=== PATIENT | male | born 1960 | race Caucasian/White ===

== ENCOUNTER 2017-12-27 13:24 | Day surgery (SDC) | payer MEDICARE, BC, SELFPAY ==
[2017-12-24 14:50] VITALS: BMI 40.1
[2017-12-27 13:44] VITALS: BP 126/76; PULSE 86; RESP 18; TEMP 36.4; O2SAT 96
[2017-12-27 14:49] VITALS: O2SAT 99
--- NOTE | 2017-12-27 15:05 | P.PCN_ITS ---
[facility] Procedure Note Procedure Note:: Upper Endoscopy Procedure Report: Esophagogastroduodenoscopy with cold biopsies Endoscopost: Nicholas Hester II, MD Referring Physician: Angela Aguero PA-C Date of Procedure: December 27, 2017 Equipment: Olympus GIF 180 standard upper endoscope Sedation: MAC sedation Indications: Mr. Sanz is a 57-year-old gentleman with long-standing reflux. He has been on omeprazole. He does report some burping and bloating. He reports no nausea, dysphagia or indigestion. He has no abdominal pain or weight loss. He reports no melanotic stools. Procedure: Prior to the procedure, a history and physical exam was performed, and patient' s medications and allergies were reviewed. The risks, benefits and alternatives of the sedation and procedure were discussed with the patient. All questions were answered and informed consent was obtained. The patient was brought to the procedure room. Patient identification and proposed procedure were verified by the physician and the nurse. The patient was placed in a left lateral decubitus position and the scope was passed under direct vision. Throughout the procedure, the patient's blood pressure, pulse, and oxygen saturations were monitored continuously. The upper GI endoscopy was accomplished without difficulty. The patient tolerated the procedure well. Findings: The scope was passed directly into the upper esophagus and advanced to the third portion of the duodenum. The post bulbar duodenum and duodenal bulb were normal with normal mucosa and conniventes. The scope was withdrawn through a normal duodenal bulb and pylorus into the stomach. There was some mild linear erythema of the antrum with bile reflux and a antral polyp that was removed via cold biopsy. The remainder of the antrum, body and fundus of the stomach were grossly normal. Upon retroflexion there was a small 2 cm hiatal hernia. The scope was then withdrawn into the esophagus. There was at least one tongue of salmon colored mucosa that was biopsied to rule out intestinal metaplasia/short segment Mortensen's esophagus. There was no evidence of reflux esophagitis or Schatzki's ring. The remainder of the esophageal mucosa was normal. Impression: 1. Possible short segment Mortensen's esophagus with nonerosive GERD and small 2 cm hiatal hernia 2. Gastric antral polyp 3. Bile reflux with mild linear reactive antritis/gastritis Plan: I would continue omeprazole as maintenance therapy. I will follow up the biopsies and proceed with screening colonoscopy.
--- NOTE | 2017-12-27 15:21 | HMH.PROC ---
[facility] Procedure Note Procedure Note:: Colonoscopy Procedure Report: Colonoscopy with cold snare polypectomy Endoscopist: Nicholas Hester II, MD Referring physician: Angela HIGUERA Date of Procedure: December 27, 2017 Equipment: Olympus 180 variable stiffness pediatric colonoscope Sedation: MAC sedation Indication: Mr. Sanz is a 57-year-old gentleman who is here for follow-up screening colonoscopy. His last colonoscopy was more than 5 years ago and he does have a history of colon polyps. He does report some intermittent diarrhea/functional diarrhea. He also has occasional bright red blood per rectum. He reports no abdominal pain, weight loss or family history of colon cancer. Procedure: Prior to the procedure, a history and physical exam was performed, and patient's medications and allergies were reviewed. The risks, benefits and alternatives of the sedation and procedure were discussed with the patient. All questions were answered and informed consent was obtained. The patient was brought to the procedure room. Patient identification and proposed procedure were verified by the physician and the nurse. The patient was placed in a left lateral decubitus position and the scope was passed under direct vision. Throughout the procedure, the patient's blood pressure, pulse, and oxygen saturations were monitored continuously. The colonoscopy was accomplished without difficulty. The patient tolerated the procedure well. Findings: On digital rectal examination there was normal rectal tone. There were no external hemorrhoids. The prostate was 2+, smooth, soft, symmetric without nodules. The colonoscope was introduced through the anal canal to the rectum and advanced to the cecum. The ileocecal valve and appendiceal orifice were identified. The scope was advanced a short distance into the ileum which appeared grossly normal. The scope was then withdrawn into the colon. There were 4 colon polyps identified in the descending ?1 and sigmoid ?3. These ranged in size from 4-11 mm and were all removed via cold snare polypectomy. There were mildly scattered diverticuli throughout the descending and sigmoid colon (LEFT colon). The rectum itself was normal. Upon retroflexion within the rectum there were grade 1 internal hemorrhoids. Impression: 1. Colonic polyps ?4 2. Mild left-sided diverticulosis 3. Grade 1 internal hemorrhoids Plan: I will follow up the polyp pathology and recommend repeat colonoscopy again in 5 years based upon the polyp histology. I would encourage fiber bulk supplementation on a long-term daily maintenance basis.
[2017-12-27 15:25] VITALS: BP 102/61; PULSE 92; RESP 18; TEMP 36.4; O2SAT 94
--- NOTE | 2017-12-27 15:25 | P.PCN_ITS ---
[facility] Procedure Note Procedure Note:: Colonoscopy Procedure Report: Colonoscopy with cold snare polypectomy Endoscopist: Nicholas Hester II, MD Referring physician: Angela HIGUEAR Date of Procedure: December 27, 2017 Equipment: Olympus 180 variable stiffness pediatric colonoscope Sedation: MAC sedation Indication: Mr. Sanz is a 57-year-old gentleman who is here for follow-up screening colonoscopy. His last colonoscopy was more than 5 years ago and he does have a history of colon polyps. He does report some intermittent diarrhea/ functional diarrhea. He also has occasional bright red blood per rectum. He reports no abdominal pain, weight loss or family history of colon cancer. Procedure: Prior to the procedure, a history and physical exam was performed, and patient' s medications and allergies were reviewed. The risks, benefits and alternatives of the sedation and procedure were discussed with the patient. All questions were answered and informed consent was obtained. The patient was brought to the procedure room. Patient identification and proposed procedure were verified by the physician and the nurse. The patient was placed in a left lateral decubitus position and the scope was passed under direct vision. Throughout the procedure, the patient's blood pressure, pulse, and oxygen saturations were monitored continuously. The colonoscopy was accomplished without difficulty. The patient tolerated the procedure well. Findings: On digital rectal examination there was normal rectal tone. There were no external hemorrhoids. The prostate was 2+, smooth, soft, symmetric without nodules. The colonoscope was introduced through the anal canal to the rectum and advanced to the cecum. The ileocecal valve and appendiceal orifice were identified. The scope was advanced a short distance into the ileum which appeared grossly normal. The scope was then withdrawn into the colon. There were 4 colon polyps identified in the descending ?1 and sigmoid ?3. These ranged in size from 4-11 mm and were all removed via cold snare polypectomy. There were mildly scattered diverticuli throughout the descending and sigmoid colon (LEFT colon). The rectum itself was normal. Upon retroflexion within the rectum there were grade 1 internal hemorrhoids. Impression: 1. Colonic polyps ?4 2. Mild left-sided diverticulosis 3. Grade 1 internal hemorrhoids Plan: I will follow up the polyp pathology and recommend repeat colonoscopy again in 5 years based upon the polyp histology. I would encourage fiber bulk supplementation on a long-term daily maintenance basis.
--- NOTE | 2017-12-27 15:32 | HMH.ANESCL ---
[facility] Anesthesia Checklist - Patient Identification Patient Identification: Arm Band - Structural Data Admitted From: Home Consent for Planned Operative Procedure(s) Verified: Yes Verified Documents: Surgical Consent, History and Physical - NPO Status Verified Time NPO: 00:00 - Additional verifications Anesthesia Reactions: No - Airway Assessment C-Spine Mobility Assessed: Yes TMJ Mobility Assessed: Yes Dentition: Edentulous - Neurological Assessment Level of Consciousness: Awake Hx Seizures: No Numbness or tingling in extremities: No - Anesthesia Plan Anesthesia Risk discussed: Yes Anesthesia Plan: Verified ASA Class: III Anesthesia Type: MAC [facility] Anesthesia HX I have reviewed the patient's past medical history: Yes Medical History: Reports:: Anxiety, Asthma, Chronic Obstructive Pulmonary Disease (COPD), Gastroesophageal Reflux Disease(GERD), Hyperlipidemia, Hypertension, Lung Disease (copd) Denies:: Diabetes Mellitus Type 1, Diabetes Mellitus Type 2, Internal Pacemaker, Seizures Comment: morbid obesity Laterality Cases: Left: Arthroscopy Shoulder, Other Other Surgeries: Yes: Hernia Repair, Sinus Surgery. No: Pacemaker Amputation: No Fractures: No *Family Hx:: Coronary Artery Disease, Heart Attack, Cancer
[2017-12-27 15:35] VITALS: BP 115/72; PULSE 80; RESP 18; O2SAT 99
[2017-12-27 15:45] VITALS: BP 122/82; PULSE 76; RESP 18; O2SAT 97
[2017-12-27 16:10] VITALS: BP 113/77; PULSE 80; RESP 18; TEMP 36.2; O2SAT 98
== END 2017-12-27 16:10 | disposition home or self-care (01) ==
LOC: OUTP 13:28
PROVIDERS: Family Provider Family Medicine; PCP Physician Assistant; Visit Provider Internal Medicine Gastroenterology
PROC: 0DJ08ZZ Inspection of Upper Intestinal Tract, Via Natural or Artificial Opening Endoscopic (ICD-10-PCS; CPT 43235; principal; 2017-12-27 14:30)
DX: Z12.11 Encounter for screening for malignant neoplasm of colon (principal); K63.5 Polyp of colon; K57.30 Diverticulosis of large intestine without perforation or abscess without bleeding; K64.0 First degree hemorrhoids; K21.9 Gastro-esophageal reflux disease without esophagitis; K44.9 Diaphragmatic hernia without obstruction or gangrene; K31.7 Polyp of stomach and duodenum; K29.60 Other gastritis without bleeding
CPT/HCPCS: 43239; 45385; 88305

== ENCOUNTER 2020-04-15 15:30 | Emergency (ER) | payer MEDICARE, BC, SELFPAY ==
--- NOTE | 2020-04-15 15:49 | XR_ITS ---
PROCEDURE: XR HAND RT MIN 3V CLINICAL INDICATION: INJURY Right hand swelling and pain after a fall on Wednesday. COMPARISON: No exams were available for comparison FINDINGS: There is a mildly displaced spiral fracture of the 4th metacarpal shaft. No lytic or blastic change. There is normal mineralization. The joint spaces are well-preserved. Very mild degenerative changes are seen of the DIP joints.. No erosive changes evident. Other findings:Soft tissue edema/swelling of the hand is seen more dorsally. IMPRESSION: 1. A mildly displaced spiral fracture of the 4th metacarpal. 2. Soft tissue edema/swelling of the right hand is seen more dorsally. Dictated by: Patricio Pagan 04/15/2020 16:26 Electronically signed by Patricio Pagan in [place] 04/15/2020 16:26
[2020-04-15 16:00] VITALS: BP 125/79; PULSE 73; RESP 20; TEMP 36.8; O2SAT 98; BMI 41.9
[2020-04-15 16:08] VITALS: BP 125/79; PULSE 73; RESP 20; TEMP 36.8; O2SAT 98
--- NOTE | 2020-04-15 16:11 | HMH.EDUTC ---
[facility] Disposition Clinical Impression: Fracture, metacarpal shaft Qualifiers: Encounter type: initial encounter Metacarpal bone: fourth Fracture type: closed Fracture alignment: displaced Laterality: right Qualified Code(s): S62.324A - Displaced fracture of shaft of fourth metacarpal bone, right hand, initial encounter for closed fracture Disposition: Home, Self-Care Condition on Discharge: Good Instructions: Hand Fracture Additional Instructions: elevated splint in place see ortho call office tomorrow if numbess or tingling remove splint and call or return to [facility] or [facility] for 20 mins remove then repeat every hour Referrals: Angela Aguero [Primary Care Provider] - Maria Del Carmen Mccray MD [Physician] - Time of Disposition: 16:39 Medical Decision Making - Dean Inquiry Pt receiving controlled substance: No Vital Signs: 04/15/20 16:00 04/15/20 16:08 Temperature 98.3 F 98.3 F Temperature Source Oral Oral Pulse Rate 73 Pulse Rate [Left] 73 Respiratory Rate 20 20 Blood Pressure 125/79 Blood Pressure [Right Arm] 125/79 Blood Pressure Mean [Right Arm] 94 Blood Pressure Source [Right Arm] Automatic Cuff Blood Pressure Position [Right Arm] Sitting 02 Sat by Pulse Oximetry 98 Oxygen Delivery Method Room Air Room Air Orders (Tests/Meds): ORDERS Category Date Time Status Hand XR right minimum 3 views [XR hand RT min 3V] Stat Exams 04/15/20 15:49 Taken [facility] HPI - General Chief complaint: Urgent Treatment Center Stated complaint: AO 0725@1400 fell injured R Hand Time Seen by Provider: 04/15/20 16:11 Mode of Arrival: Ambulatory Source of Information: Patient Limitations: No Limitations Description of Symptoms (Recalled from Triage Doc. by RN): Right hand pain- Pt fell out of a chair because it broke. HEENT Symptoms (Recalled from RN notes): No Resp Symptoms (Recalled from RN notes): No Skin Symptoms (Recalled from RN notes): No MS Symptoms (Recalled from RN notes): Yes (right hand pain) Functional Status (Recalled from RN notes): stable - History of Present Illness Provider Complaint: 60 yr old male presents for rt hand pain. pt states on sat the chair he was sitting in legs broke and he fell and caught with hand. Pt states swollen and tender to palpated - Related Data Home Medications Medication Instructions Recorded Confirmed aspirin 81 mg tablet,delayed 81 mg PO DAILY tab 12/16/17 12/24/17 release cholecalciferol (vitamin D3) 25 1,000 unit PO DAILY cap 12/16/17 12/24/17 mcg (1,000 unit) capsule furosemide 20 mg tablet 40 mg PO DAILY tab 12/16/17 12/24/17 omeprazole 40 mg capsule,delayed 40 mg PO DAILY cap 12/16/17 12/24/17 release tamsulosin 0.4 mg capsule 0.4 mg PO DAILY cap 12/16/17 12/24/17 venlafaxine 75 mg capsule,extended 75 mg PO TID cap 12/16/17 12/24/17 release 24 hr Losartan/Hydrochlorothiazide 1 each PO DAILY 12/20/17 12/24/17 [Losartan-Hctz 100-25 mg Tab] Pravastatin Sodium [Pravachol 40mg 40 mg PO DAILY 12/20/17 12/24/17 Tablet] Albuterol Sulfate [Proair Hfa 2 puffs IH Q4HP PRN 12/24/17 12/24/17 90mcg/puff Inh] Budesonide [Pulmicort 0.5mg/2mL 0.5 mg IH DAILY 12/24/17 12/24/17 neb] digestive enzymes (plant) 75 mg 75 mg PO DAILY cap 02/01/18 capsule lactobacillus combination no.8 3 3,000 mmu cells PO DAILY cap 02/01/18 billion cell capsule fluticasone fur. 100 mcg-umeclid 1 inh INHALATION DAILY 06/07/18 62.5 mcg-vilant 25 mcg inhalat.powder Previous Rx's Medication Instructions Recorded carvedilol 25 mg tablet 50 mg PO BID #240 tab 04/11/19 Allergies Allergy/AdvReac Type Severity Reaction Status Date / Time No Known Allergies Allergy Verified 08/02/18 11:21 - Worker's Comp Is this a Worker's Comp case?: No Is this an [facility] Worker's Comp?: No Is this a [facility] Worker's Comp?: No [facility] History - Hepatitis A Screen Drug use history?: No High risk sexual behaviors?: No History of sexually transm
== END 2020-04-15 17:12 | disposition home or self-care (01) ==
PROVIDERS: Emergency Provider Nurse Practitioner Family; PCP Physician Assistant
DX: S62.324A Displaced fracture of shaft of fourth metacarpal bone, right hand, initial encounter for closed fracture (principal); W07.XXXA Fall from chair, initial encounter; Y92.019 Unspecified place in single-family (private) house as the place of occurrence of the external cause; I10 Essential (primary) hypertension; K21.9 Gastro-esophageal reflux disease without esophagitis; F41.9 Anxiety disorder, unspecified; E78.5 Hyperlipidemia, unspecified; J44.9 Chronic obstructive pulmonary disease, unspecified; Z87.891 Personal history of nicotine dependence; Z79.899 Other long term (current) drug therapy
CPT/HCPCS: 29125; G0463; 73130; 99201; 99202

== ENCOUNTER → 2020-04-26 13:18 | Outpatient (CLI) | payer MEDICARE, BC, SELFPAY ==
--- NOTE | 2020-04-26 13:26 | XR_ITS ---
PROCEDURE: XR HAND RT MIN 3V CLINICAL INDICATION: RT 4th MC FX COMPARISON: No exams were available for comparison FINDINGS: The hand and wrist are in circled by a semiopaque cast. There is a spiral oblique fracture mid shaft 4th metacarpal in satisfactory alignment. There is no definite callus formation seen. The remaining metacarpals in all of phalanges appear intact. There is mild narrowing of the MP joints of all fingers. IMPRESSION: Satisfactory alignment and post casting of spiral oblique fracture 4[address] Manoj Stanford MD 04/26/2020 14:05 Dr. Manoj Fishman MD in [place] 04/26/2020 14:05
== END ==
PROVIDERS: PCP Physician Assistant; Visit Provider Orthopaedic Surgery
DX: S62.329A Displaced fracture of shaft of unspecified metacarpal bone, initial encounter for closed fracture (principal)
CPT/HCPCS: 73130

== ENCOUNTER → 2020-05-17 09:44 | Outpatient (CLI) | payer MEDICARE, BC, SELFPAY ==
--- NOTE | 2020-05-17 09:56 | XR_ITS ---
PROCEDURE: XR HAND RT MIN 3V CLINICAL INDICATION: 4th MC FX Follow-up 4th metacarpal fracture COMPARISON: CR XR HAND RT MIN 3V from 04/15/2020 CR XR HAND RT MIN 3V from 04/26/2020 FINDINGS: The cast has been removed. There is a healing oblique 4th metacarpal fracture which is nondisplaced with increasing callus formation. The joint spaces are well-preserved. No significant degenerative/arthritic changes. No erosive changes evident. Other findings:None. IMPRESSION: Healing nondisplaced left 4th metacarpal fracture Dictated by: Maximino Cruz MD 05/17/2020 11:23 Maximino Cruz MD in [place] 05/17/2020 11:23
== END ==
PROVIDERS: PCP Physician Assistant; Visit Provider Orthopaedic Surgery
DX: S62.329A Displaced fracture of shaft of unspecified metacarpal bone, initial encounter for closed fracture (principal)
CPT/HCPCS: 73130

== ENCOUNTER 2020-05-17 11:54 | Outpatient (RCR) | payer MEDICARE, BC, SELFPAY | END 2020-05-17 12:30 | disposition home or self-care (01) | LOC: OT 11:54 | PROVIDERS: Visit Provider Orthopaedic Surgery | DX: S62.324A Displaced fracture of shaft of fourth metacarpal bone, right hand, initial encounter for closed fracture (principal) | CPT/HCPCS: 97763 ==

== ENCOUNTER → 2020-07-01 10:46 | Outpatient (CLI) | payer MEDICARE, BC, SELFPAY ==
--- NOTE | 2020-07-01 10:55 | XR_ITS ---
PROCEDURE: XR HAND RT MIN 3V CLINICAL INDICATION: rt hand FX FU COMPARISON: CR XR HAND RT MIN 3V from 04/15/2020 CR XR HAND RT MIN 3V from 04/26/2020 CR XR HAND RT MIN 3V from 05/17/2020 FINDINGS: There is a healing fracture involving the shaft of the 4th metacarpal mid aspect with good alignment. Mild osteoarthritic changes are present at the 1st and 2nd metacarpophalangeal joint Other findings:None. IMPRESSION: Healing 4th metacarpal fracture Dictated by: Maximino Cruz MD 07/01/2020 11:27 Maximino Cruz MD in [place] 07/01/2020 11:27
== END ==
PROVIDERS: PCP Physician Assistant; Visit Provider Orthopaedic Surgery
DX: S62.329A Displaced fracture of shaft of unspecified metacarpal bone, initial encounter for closed fracture (principal)
CPT/HCPCS: 73130

== ENCOUNTER → 2020-10-15 12:38 | Outpatient (CLI) | payer MEDICARE, BC, SELFPAY ==
[2020-10-15 13:05] LABS: Basophils # 0.1 K/mm3 (0-0.2); Basophils % 0.6 % (0.1-2.0); Eosinophils # 0.2 K/mm3 (0.0-0.4); Eosinophils % 3.2 % (0.1-12.0); Hemoglobin 14.4 g/dL (14.1-18.0); Lymphocytes # 1.1 K/mm3 (0.7-4.5); Lymphocytes % 14.7 % (10-50); Mean Corpuscular HGB Conc 33.5 g/dL (31.8-35.4); Mean Corpuscular Hemoglobin 29.7 pg (27.0-31.2); Mean Corpuscular Volume 88.8 fl (80-94); Mean Platelet Volume 8.4 fl (7.4-10.4); Monocytes # 0.3 K/mm3 (0.1-1.0); Monocytes % 4.6 % (1.7-9.3); Neutrophils # 5.6 K/mm3 (1.8-7.8); Neutrophils % 76.9 % (37.0-80.0); Platelet Count 200 K/mm3 (142-424); Red Blood Count 4.84 M/mm3 (4.60-6.20); Red Cell Distribution Width 13.5 % (11.5-17.5); White Blood Count 7.2 K/mm3 (4.8-10.8)
[2020-10-15 13:49] LABS: Chloride 94 mmol/L (98-107); Potassium 3.7 mmoL/L (3.5-5.1); Sodium 135 mmol/L (136-145)
[2020-10-15 13:51] LABS: Alanine Aminotransferase 29 U/L (12-78); Anion Gap 12.7 mEq/L (5-15); Aspartate Amino Transferase 40 U/L (17-59); Bilirubin,Unconjugated 0.1 mg/dL (0.0-1.1); Blood Urea Nitrogen 15 mg/dl (9-20); Carbon Dioxide 32 mmol/L (22.0-30.0); Estimated Glomerular Filt Rate 86 ml/min (>60); GFR (African American) 104 ML/MIN (>60)
[2020-10-15 13:52] LABS: Albumin Level 4.3 g/dl (3.5-5.0); Alkaline Phosphatase 87 U/L (38-126); Bilirubin,Direct 0.2 mg/dl (0.0-0.4); Bilirubin,Indirect 0.2 mg/dL (0.0-0.9); Bilirubin,Total 0.4 mg/dl (0.2-1.3); Calcium 9.5 mg/dl (8.4-10.2); Chol/HDL Ratio 2.6 (1-3.5); Cholesterol 207 mg/dl (140-200); Glucose 247 mg/dl (74-100); HDL Cholesterol 79 mg/dl (40-60); Magnesium 1.5 mg/dl (1.6-2.3); Total Protein,Serum 7.3 g/dl (6.3-8.2); Triglycerides 303 mg/dl (30-150); VLDL Cholesterol 61 mg/dL (0-40)
[2020-10-15 14:01] LABS: NT Pro Brain Natriuretic Pep. 110 pg/mL (0-125)
[2020-10-15 14:03] LABS: Direct LDL Cholesterol 97.06 mg/dL (100-129)
== END ==
PROVIDERS: Visit Provider Physician Assistant
DX: E78.5 Hyperlipidemia, unspecified (principal); I10 Essential (primary) hypertension; J44.9 Chronic obstructive pulmonary disease, unspecified; R06.00 Dyspnea, unspecified
CPT/HCPCS: 36415; 80048; 80061; 80076; 83735; 83880; 85025

== ENCOUNTER → 2021-03-17 07:49 | Outpatient (CLI) | payer MEDICARE, BC, SELFPAY ==
--- NOTE | 2021-03-17 07:53 | XR_ITS ---
PROCEDURE: XR FOOT WT BEARING RT 3V CLINICAL INDICATION: pain COMPARISON: No exams were available for comparison FINDINGS: There is a healing fracture involving the distal aspect of the 5th metatarsal. There is minimal medial angulation and 3 mm medial displacement of the distal fracture fragment. Callus formation is present. There is a small calcaneal spur and Achilles enthesophyte. Mild flexion deformity of the 2nd toe. Osteoarthritic change 1st MTP joint and 1st tarsal metatarsal junction. IMPRESSION: Healing 5th metatarsal fracture Osteoarthritic change Dictated by: Maximino Cruz MD 03/17/2021 09:13 Maximino Cruz MD in [place] 03/17/2021 09:13
--- NOTE | 2021-03-17 07:53 | XR_ITS ---
PROCEDURE: XR FOOT WT BEARING LT 3V CLINICAL INDICATION: foot pain COMPARISON: No exams were available for comparison FINDINGS: No fracture or dislocation. No lytic or blastic change. There is normal mineralization. The joint spaces are well-preserved. No significant degenerative/arthritic changes. No erosive changes evident. Other findings:A broken off screws noted within the distal tibia. There is a small calcaneal spur. Borderline pes planus. IMPRESSION: Borderline pes planus. Broken off screw within the distal tibia. Dictated by: Maximino Cruz MD 03/17/2021 09:14 Maximino Cruz MD in [place] 03/17/2021 09:14
== END ==
PROVIDERS: PCP Physician Assistant; Visit Provider Nurse Practitioner
DX: M79.672 Pain in left foot (principal); M79.671 Pain in right foot
CPT/HCPCS: 73630

== ENCOUNTER → 2022-07-24 13:57 | Outpatient (CLI) | payer MEDICARE, BC, SELFPAY | PROVIDERS: PCP Nurse Practitioner Family; Visit Provider Internal Medicine Pulmonary Disease | DX: R06.09 Other forms of dyspnea (principal) | CPT/HCPCS: 94060; 94618; 94726; 94729 ==

== ENCOUNTER → 2023-03-29 15:24 | Outpatient (CLI) | payer MEDICARE, BC, SELFPAY ==
--- NOTE | 2023-03-29 15:25 | CT_ITS ---
FINAL REPORT TECHNIQUE: Axial images were obtained from the lung apex to the mid abdomen by computed tomography. This study was performed with techniques to keep radiation doses as low as reasonably achievable (ALARA). Individualized dose reduction techniques using automated exposure control or adjustment of mA and/or kV according to the patient's size were employed. CLINICAL HISTORY: lung cancer screening - March 2022 previous smoker, quit 12 years ago, smoked 36 years and 3ppd when smoking COMPARISON: 03/27/2022 FINDINGS: CHEST CT LOW DOSE CTDI vol (mGy): 2.90 DLP (mGy-cm): 97.95 There is no axillary adenopathy. There is no hilar or mediastinal adenopathy. The heart is normal in size. There is no pericardial or pleural effusion. Several small pulmonary nodules are again identified. There is a 5 mm posterior right upper lobe nodule well seen on image 25. There are small nodules near the left major fissure which are stable, may represent intra fissural nodes. There is a lateral left upper lobe nodule measuring 4 mm well seen on image 103, stable. No new mass or nodule is identified. Limited images of the upper abdomen are unremarkable. IMPRESSION: Stable pulmonary nodules as above. Lung RADS category 2. Recommend 12 month follow-up low-dose chest CT. Reviewed, Interpreted and Dictated by Nick Young III, MD Transcribed by Brenda Grady Authenticated and [facility]
== END ==
PROVIDERS: PCP Nurse Practitioner Family; Visit Provider Internal Medicine Pulmonary Disease
DX: Z87.891 Personal history of nicotine dependence (principal); Z12.2 Encounter for screening for malignant neoplasm of respiratory organs
CPT/HCPCS: 71271

== ENCOUNTER 2025-05-16 08:00 | Outpatient (RCR) | payer MEDICARE, SELFPAY | END 2025-05-16 23:59 | disposition home or self-care (01) | LOC: PT.CARL 08:00 | PROVIDERS: Visit Provider Nurse Practitioner Family | DX: M54.42 Lumbago with sciatica, left side (principal) | CPT/HCPCS: 97032; 97110; 97112; 97140; 97162 ==

== ENCOUNTER 2025-05-23 10:31 | Day surgery (SDC) | payer MEDICARE, SELFPAY ==
--- NOTE | 2025-05-22 10:55 | EXP.HP ---
History of Present Illness *Reason for visit:: Personal history of adenomatous colon polyps *History of present illness: Mr. Sanz is a 65-year-old gentleman who is here for screening/surveillance colonoscopy secondary to a personal history of adenomatous colon polyps. The patient did have a colonoscopy and December 2017 and had 4 polyps (small tubular adenomas x 4) removed (ranging in size from 4 to 11 mm). He also had some mild left-sided diverticulosis. The examination is deemed medically necessary for screening/surveillance colonoscopy. The patient has been seen, interviewed and examined prior to the procedure by both myself and the anesthesia provider. [facility] Disclaimer: The information contained in this section may have been updated after the patient was seen, as this information can be updated by other users. Medical History Diabetes Hyperlipidemia Hypertension Screening for lung cancer Dyspnea on exertion Multiple pulmonary nodules Stopped smoking with greater than 30 pack year history Shortness of breath COPD (chronic obstructive pulmonary disease) Surgical History History of arthroscopy of shoulder Family History Other Cancer Coronary artery disease Heart attack Social History (Updated 05/23/25 @ 11:07 by Gisella Espino RN) Smoking Status: Former smoker tobacco type: cigarettes second hand exposure: No alcohol intake: former substance use type: denies use current occupational status: retired Travel in the last 8 weeks?: None household members: spouse housing: house current occupational exposures/hazards: No caffeine: Yes Have you lived/traveled outside [place] in past 30 days?: No Contact w/someone who lives/traveled outside [place] past 30 days?: No Exposure to someone with infectious disease in past 14 days?: No Do you have a fever (greater than 100.4 F or 38 C)?: No Have you tested positive for COVID-19?: No Exposed to someone with COVID-19 in past 14 days?: No Do you have a sore throat?: No Do you have a cough?: No Do you have any weakness?: No Are you experiencing any nausea/vomitting?: No Do you have any diarrhea?: No Are you experiencing any unusual bleeding?: No Do you have any muscle aches/pain?: No Do you have any abdominal pain?: No Are you experiencing loss of taste or smell?: No Other Medical History Have you received the Flu Vaccine for this season: No Have you received the Pneumonia Vaccine: Yes Review of Systems Review of Systems Review of systems (narrative): Negative *Cardiovascular Comments: Negative *Gastrointestinal Comments: Negative *Genitourinary Comments: Negative *Musculoskeletal Comments: Negative *Neurologic Comments: Negative Meds Home Medications and Allergies Home Medications ?Medication ?Instructions ?Recorded ?Confirmed ?Type cholecalciferol (vitamin D3) 25 1,000 unit PO DAILY Supplement 12/16/17 05/23/25 History mcg (1,000 unit) capsule furosemide 20 mg tablet (Lasix) 40 mg PO DAILY Heart failure 12/16/17 05/23/25 History omeprazole 40 mg capsule,delayed 40 mg PO DAILY GERD 12/16/17 05/23/25 History release tamsulosin 0.4 mg capsule (Flomax) 0.4 mg PO DAILY Supplement 12/16/17 05/23/25 History venlafaxine 75 mg capsule,extended 75 mg PO TID Supplement 12/16/17 05/23/25 History release 24 hr (Effexor XR) losartan 100 1 each PO DAILY High blood pressure 12/20/17 05/23/25 History mg-hydrochlorothiazide 25 mg tablet pravastatin 40 mg tablet 40 mg PO DAILY High cholesterol 12/20/17 05/23/25 History budesonide 0.5 mg/2 mL suspension 0.5 mg inhalation DAILY Breathing 12/24/17 05/23/25 History for nebulization problems lactobacillus combination no.8 3 3,000 mmu cells PO DAILY 02/01/18 05/23/25 History billion cell capsule (Adult Probiotic) buspirone 15 mg tablet 15 mg PO BID 10/15/20 05/23/25 History empagliflozin 10 mg tablet 10 mg PO DAILY 03/17/21 05/23/25 History (Jardiance) carvedilol 25 mg tablet See Rx Instructions .Route 04/21/22 05/23/25 Rx .COMPLEX #360 tabs apixaban 5 mg tablet (Eliquis) 5 mg PO BID 04/22/22 05/23/25 History diltiazem HCl 240 mg capsule,24 240 mg PO DAILY 04/22/22 05/23/25 History hr,extended release gabapentin 100 mg capsule 100 mg PO DAILY 04/22/22 05/23/25 History metformin 500 mg tablet,extended 500 mg PO BID 04/22/22 05/23/25 History release 24 hr albuterol sulfate 90 mcg/actuation 2 inh inhalation QID PRN shortness 04/20/23 05/23/25 Rx aerosol inhaler of breath or wheezing 90 days #8.5 grams fluticasone fur. 200 mcg-umeclid 1 inh inhalation DAILY 90 days #90 04/20/23 05/23/25 Rx 62.5 mcg-vilant 25 mcg ea inhalat.powder (Trelegy Ellipta) ipratropium 0.5 mg-albuterol 3 mg 3 ml inhalation QID PRN shortness 04/20/23 05/23/25 Rx (2.5 mg base)/3 mL nebulization of breath or wheezing 90 days #270 soln mL montelukast 10 mg tablet 10 mg PO DAILY #90 tabs 04/20/23 05/23/25 Rx (Singulair) sodium,potassium,mag sulfates 17.5 See Rx Instructions PO .COMPLEX 05/10/25 05/23/25 Rx gram-3.13 gram-1.6 gram oral soln #354 mL (Suprep Bowel Prep Kit) New Prescriptions to Start Prescriptions: Allergies Allergy/AdvReac Type Severity Reaction Status Date / Time No Known Allergies Allergy Verified 05/23/25 10:57 Exam *Routine HEENT Exam Head: Present normocephalic Eye: Present EOMI and PERRL ENT: Present mucous membranes moist *Routine Neck Exam Neck: Present supple *Routine Respiratory Exam Respiratory: Present CTA bilaterally *Routine Cardiovascular Exam Cardiovascular: Present RRR *Routine Abdominal Exam Abdominal: Present soft and normoactive bowel sounds; Absent tenderness *Routine Rectal Exam Rectal:: deferred *Routine Genitalia Exam Genitalia:: deferred *Routine Extremities Exam Extremities: Absent cyanosis, clubbing or edema *Routine Skin Exam Skin: Present warm; Absent rash *Routine Neurological Exam Neurological: Present alert and oriented X3 Assessment and Plan *Assessment and plan (1) Personal history of adenomatous and serrated colon polyps: Status: Acute Category: Medical Code(s): Z86.0101 - Personal history of adenomatous and serrated colon polyps (2) Screening for colon cancer: Status: Acute Category: Medical Code(s): Z12.11 - Encounter for screening for malignant neoplasm of colon Plan A/P: 1. Personal history of adenomatous colon polyps is the preprocedural diagnosis. The patient will be anesthetized/sedated using MAC sedation. The patient has been seen and examined. Cardiac and lung assessment prior to the examination is stable. Proceed with planned screening/surveillance colonoscopy..
[2025-05-22 12:44] VITALS: BMI 34.0
[2025-05-23 10:58] VITALS: BP 143/70; PULSE 63; RESP 18; TEMP 36.1; O2SAT 96
[2025-05-23] MEDS: LACTATED RINGERS 1000ML 1,000 ML 50 ML IV (11:14)
--- NOTE | 2025-05-23 11:19 | EXP.ANES.CKL ---
[facility] Disclaimer: The information contained in this section may have been updated after the patient was seen, as this information can be updated by other users. Medical History Diabetes Hyperlipidemia Hypertension Screening for lung cancer Dyspnea on exertion Multiple pulmonary nodules Stopped smoking with greater than 30 pack year history Shortness of breath COPD (chronic obstructive pulmonary disease) Surgical History History of arthroscopy of shoulder Family History Other Cancer Coronary artery disease Heart attack Social History (Updated 05/23/25 @ 11:07 by Gisella Espino RN) Smoking Status: Former smoker tobacco type: cigarettes second hand exposure: No alcohol intake: former substance use type: denies use current occupational status: retired Travel in the last 8 weeks?: None household members: spouse housing: house current occupational exposures/hazards: No caffeine: Yes Have you lived/traveled outside [place] in past 30 days?: No Contact w/someone who lives/traveled outside [place] past 30 days?: No Exposure to someone with infectious disease in past 14 days?: No Do you have a fever (greater than 100.4 F or 38 C)?: No Have you tested positive for COVID-19?: No Exposed to someone with COVID-19 in past 14 days?: No Do you have a sore throat?: No Do you have a cough?: No Do you have any weakness?: No Are you experiencing any nausea/vomitting?: No Do you have any diarrhea?: No Are you experiencing any unusual bleeding?: No Do you have any muscle aches/pain?: No Do you have any abdominal pain?: No Are you experiencing loss of taste or smell?: No [facility] Anesthesia Checklist Patient Identification Patient Identification: Arm Band Structural Data Admitted From: Home Planned Operative Procedure/s: Colonoscopy Consent for Planned Operative Procedure(s) Verified: Yes Verified Documents: Surgical Consent and History and Physical NPO Status Verified Time NPO: 08:30 (finished prep) Additional verifications Anesthesia Reactions: No Airway Assessment Mallampati Score:: Class II C-Spine Mobility Assessed: Yes TMJ Mobility Assessed: Yes Dentition: Good Dentition Neurological Assessment Level of Consciousness: Awake, Alert and Appropriate Anesthesia Plan Anesthesia Risk discussed: Yes Anesthesia Plan: Verified ASA Class: III Anesthesia Type: MAC
--- NOTE | 2025-05-23 11:41 | HMH.PROCNOTE ---
[facility] Procedure Note Date: 05/23/25 Time: 12:11 Procedure Note:: Colonoscopy Procedure Report: Colonoscopy with cold snare polypectomy and snare cautery Endoscopist: Nicholas Hester II, MD Referring physician: LORIN Michel Date of Procedure: May 23, 2025 Equipment: Olympus [id number] adult colonoscope Sedation: MAC sedation Indication: Mr. Sanz is a 65-year-old gentleman who is here for screening/surveillance colonoscopy secondary to a personal history of adenomatous colon polyps. The patient did have a colonoscopy in December 2017 and had 4 polyps (small tubular adenomas x 4) removed (ranging in size from 4 to 11 mm). He also had some mild left-sided diverticulosis. He has not had any surveillance colonoscopies since that time. The patient reports no abdominal pain, weight loss, change in his bowel habits or rectal bleeding. He reports no family history of colon cancer. Procedure: Prior to the procedure, a history and physical exam was performed, and patient's medications and allergies were reviewed. The risks, benefits and alternatives of the sedation and procedure were discussed with the patient. All questions were answered and informed consent was obtained. The patient was brought to the procedure room. Patient identification and proposed procedure were verified by the physician and the nurse. The patient was placed in a left lateral decubitus position and the scope was passed under direct vision. Throughout the procedure, the patient's blood pressure, pulse, and oxygen saturations were monitored continuously. The colonoscopy was accomplished without difficulty. The patient tolerated the procedure well. Findings: On digital rectal examination there was normal rectal tone. There were no external hemorrhoids. The prostate was 2-3+ with some focal firmness/nodularity in the right upper margin. The colonoscope was introduced through the anal canal to the rectum and advanced to the cecum. The ileocecal valve and appendiceal orifice were identified. The scope was advanced a short distance into the ileum which appeared grossly normal. The scope was then withdrawn into the colon. There were 16 colon polyps (cecal x 4 (3, 4, 4 and 4 mm), ascending x 3 (3, 5 and 6 mm), transverse x 6 (3, 3, 3, 4, 6 and 7 mm) and sigmoid x 3 (4, 5 and 12 mm)). All of these were removed via cold snare polypectomy. The larger 12 mm polyp was removed via snare cautery. There were scattered diverticuli throughout the colon but more predominantly in the descending and sigmoid colon (LEFT colon). The rectum itself was normal. Upon retroflexion within the rectum there were grade 2 internal hemorrhoids. The preparation was excellent throughout with [place] Preparation Score of 9. The cecal time was 18 minutes. Impression: 1. Colonic polyps x 16 2. Pandiverticulosis 3. Grade 2 internal hemorrhoids 4. Nodular prostate Plan: I will follow-up the polyp histology and recommend repeat screening/surveillance colonoscopy again in 3 years. I would encourage psyllium bulking fiber supplementation on a maintenance basis. I will obtain PSA level if it has not been done in the last year.
[2025-05-23 12:16] VITALS: BP 136/73; PULSE 74; RESP 16; TEMP 36.1; O2SAT 96
[2025-05-23 12:26] VITALS: BP 120/76; PULSE 83; RESP 18; TEMP 36.1; O2SAT 95
[2025-05-23 12:36] VITALS: BP 138/74; PULSE 76; RESP 18; TEMP 36.1; O2SAT 95
[2025-05-23 12:46] VITALS: BP 150/72; PULSE 80; RESP 18; TEMP 36.1; O2SAT 96
[2025-05-23 14:21] LABS: Prostate Specific Ag, Diagnost 0.691 ng/ml (0.0-4.0)
[2025-05-27 09:10] LABS: POC Glucose,Bedside 96 gm/dL (70-110)
== END 2025-05-23 12:46 | disposition home or self-care (01) ==
PROVIDERS: PCP Nurse Practitioner Family; Visit Provider Internal Medicine Gastroenterology
PROC: 0DJD8ZZ Inspection of Lower Intestinal Tract, Via Natural or Artificial Opening Endoscopic (ICD-10-PCS; CPT 45378; principal; 2025-05-23 12:30)
DX: Z12.11 Encounter for screening for malignant neoplasm of colon (principal); D12.2 Benign neoplasm of ascending colon; D12.0 Benign neoplasm of cecum; D12.5 Benign neoplasm of sigmoid colon; D12.3 Benign neoplasm of transverse colon; K57.30 Diverticulosis of large intestine without perforation or abscess without bleeding; K64.1 Second degree hemorrhoids; N40.2 Nodular prostate without lower urinary tract symptoms; Z86.0101 Personal history of adenomatous and serrated colon polyps; E11.9 Type 2 diabetes mellitus without complications; E78.5 Hyperlipidemia, unspecified; I10 Essential (primary) hypertension; J44.9 Chronic obstructive pulmonary disease, unspecified; Z87.891 Personal history of nicotine dependence; Z79.899 Other long term (current) drug therapy; Z79.01 Long term (current) use of anticoagulants; Z79.84 Long term (current) use of oral hypoglycemic drugs; Z79.51 Long term (current) use of inhaled steroids
CPT/HCPCS: 45385; 36415; 82962; 84153; J2003; J2704; J7120

== ENCOUNTER 2025-06-04 08:00 | Outpatient (RCR) | payer MEDICARE, SELFPAY | END 2025-06-04 23:59 | disposition home or self-care (01) | LOC: PT.CARL 08:00 | PROVIDERS: Visit Provider Nurse Practitioner Family | DX: M54.42 Lumbago with sciatica, left side (principal) | CPT/HCPCS: 97014; 97032; 97110; 97112; G0283 ==

== ENCOUNTER 2025-06-12 08:56 | Outpatient (CLI) | payer MEDICARE, SELFPAY ==
--- NOTE | 2025-06-12 08:59 | US_ITS ---
FINAL REPORT TECHNIQUE: Ultrasound images of the abdominal aorta were obtained. CLINICAL HISTORY: SCREENING FINDINGS: ULTRASOUND OF THE ABDOMINAL AORTA The aorta is within normal limits without evidence of aneurysm. The bifurcation is normal. IMPRESSION: No evidence of abdominal aortic aneurysm. Reviewed, Interpreted and Dictated by Nissa Harvey MD Transcribed by Jazmyn Billingsley Authenticated and [facility]
--- OUTSIDE RECORDS SUMMARY | 2025-06-12 09:13 | XMS_ITS | Clinical Summary ---
Author Organization [facility] Address [address] [place] [address] Care Team Providers Care Pearl Cutter Name Role Phone Lexi Brooks APRN Primary Care Provider [phone] Allergies No known active allergies Medications albuterol sulfate HFA 108 (90 Base) MCG/ACT inhaler Inhale 1 puff 4 (Four) Times a Day As Needed. Active Fluticasone-Ume clidin-Vilant (TRELEGY) 200-62.5-25 MCG/INH inhaler Inhale 1 puff Daily. Active esomeprazole (nexIUM) 40 MG capsule Take 1 capsule by mouth Every Morning Before Breakfast. Active Saccharomyces boulardii (Probiotic) 250 MG capsule Take 250 mg by mouth Daily. Active triamcinolone (KENALOG) 0.1 % cream 10/21/2022 Active ipratropium-alb uterol (DUO-NEB) 0.5-2.5 mg/3 ml nebulizer 04/20/2023 Active metFORMIN ER (GLUCOPHAGE-XR) 500 MG 24 hr tablet 1 tablet Daily With Breakfast. 05/21/2023 Active ALPRAZolam (XANAX) 0.5 MG tablet Take 0.5 tablets by mouth As Needed. Active carvedilol (COREG) 3.125 MG tablet Take 1 tablet by mouth Daily. Active losartan-hydroc hlorothiazide (HYZAAR) 100-25 MG per tablet Take 1 tablet by mouth Daily. Active pantoprazole (PROTONIX) 40 MG EC tablet Take 1 tablet by mouth Daily. Active rOPINIRole (REQUIP) 0.25 MG tablet TAKE 4 TABLETS BY MOUTH 1-3 HOURS BEFORE BEDTIME FOR RESTLESS LEGS. Active topiramate (TOPAMAX) 50 MG tablet Take 1 tablet by mouth Every Night. Active apixaban (Eliquis) 5 MG tablet tablet Take 1 tablet by mouth Every 12 (Twelve) Hours. Active bumetanide (BUMEX) 1 MG tablet Take 2 tablets by mouth Daily. Active busPIRone (BUSPAR) 15 MG tablet Take 1 tablet by mouth 2 (Two) Times a Day. Active empagliflozin (Jardiance) 10 MG tablet tablet Take 1 tablet by mouth Daily. Active gabapentin (NEURONTIN) 600 MG tablet Take 0.5 tablets by mouth 2 (Two) Times a Day. 02/05/2024 Active hydrOXYzine (ATARAX) 10 MG tablet Take 1 tablet by mouth 2 (Two) Times a Day As Needed. Active montelukast (SINGULAIR) 10 MG tablet Take 1 tablet by mouth Daily. Active sotalol (BETAPACE) 120 MG tablet Take 1 tablet by mouth Every 12 (Twelve) Hours. Active vitamin B-12 (CYANOCOBALAMIN ) 1000 MCG tablet 07/28/2024 Active Vascepa 1 g capsule capsule Take 2 g by mouth 2 (Two) Times a Day. Active ARIPiprazole (ABILIFY) 10 MG tablet Take 1 tablet by mouth Daily. Active pravastatin (PRAVACHOL) 40 MG tablet Take 1 tablet by mouth every night at bedtime. Active tamsulosin (FLOMAX) 0.4 MG capsule 24 hr capsule Take 1 capsule by mouth Daily. Active venlafaxine XR (EFFEXOR-XR) 75 MG 24 hr capsule Take 2 capsules by mouth Daily. Active Active Problems Problem Noted Date Diagnosed Date Obstructive sleep apnea 03/27/2024 Assessment & Plan (10/04/2024 10:34 AM EST): Sending supply order refills. Orders: PAP Therapy Palpitations 04/20/2023 Assessment & Plan (04/20/2023 10:35 PM EDT): History of atrial fibrillation status post ablation. We will check Holter monitor to assess for possible episodes of A-fib. Dizziness 04/20/2023 Assessment & Plan (04/20/2023 10:41 PM EDT): Patient has been experiencing frequent episodes of palpitations, dizziness and fatigue that resolves after 15-30 minutes. Carotid duplex from 2020 with 16-49% carotid stenosis bilaterally. -14-day Holter monitor for further evaluation. -May need to update echo if unable to find a recent report in old charting system. Type 2 diabetes mellitus 07/03/2022 Essential hypertension 07/02/2022 Assessment & Plan (10/04/2024 10:34 AM EST): Well-controlled. Continue current medications. Assessment & Plan (11/09/2022 1:41 PM EST): At goal continue to stay off of losartan/HCTZ Alcohol abuse 10/05/2019 Assessment & Plan (11/09/2022 1:39 PM EST): Patient and report patient stopped drinking beer in August 2022. DANI treated with BiPAP 10/05/2019 Assessment & Plan (04/20/2023 10:33 PM EDT): Patient has received his replacement BiPAP machine and doing well with that. He did not bring device chip in today for download review. He uses his BIPAP consistently and denies excessive daytime sleepiness or fatigue. He is benefiting from PAP therapy and we plan to continue at current settings. Assessment & Plan (11/09/2022 1:39 PM EST): Patient reports he uses his DANI machine faithfully. He is benefiting from BiPAP therapy. We will plan to continue. He plans to take his machine to [facility] to get it mapped to his name as he has his new machine from the recall. Lumbar stenosis with neurogenic claudication Physical deconditioning 10/05/2019 Assessment & Plan (11/09/2022 1:39 PM EST): Will order physical therapy at [facility] in [place] Anxiety and depression 10/02/2019 Morbid obesity 10/02/2019 Assessment & Plan (04/20/2023 10:33 PM EDT): Patient's (Body mass index is 37.93 kg/m .) indicates that they are morbidly/severely obese (BMI > 40 or > 35 with obesity - related health condition) with health conditions that include obstructive sleep apnea and hypertension . Weight is improving with lifestyle modifications. BMI is above average; BMI management plan is completed. We discussed increasing exercise. Assessment & Plan (11/09/2022 1:38 PM EST): Has lost 20 pounds since he stopped drinking beer. Will refer back to PCP for management. Degeneration of lumbar or lumbosacral interverte bral disc 10/02/2019 Spondylosis of lumbar region without myelopathy or radiculopathy 10/02/2019 COPD (chronic obstructive pulmonary disease) Abnormal stress test Overview (07/03/2022): [facility], 05/26/2019: Luminal irregularities in LAD otherwise angiographically normal coronary arteries, EF 60% Mixed hyperlipidemia GERD (gastroesophageal reflux disease) Resolved Problems Problem Noted Date Diagnosed Date Resolved Date Atrial fibrillation with RVR 07/02/2022 10/04/2024 Overview (07/03/2022): 1. Atrial fibrillation diagnosis January 16, 2022 RADHA guided cardioversion [address] Garnica 2. Echo (while the patient was in A. fib) January 06, 2022 revealing EF 45 to 50% mild LVH left atrium moderately dilated mild MR. LA 4.7 cm 3. MCOT 01-06-22 AF HR 60-159 4. ECV to SR 10-1022 Assessment & Plan (11/09/2022 1:41 PM EST): Diagnosed January 16, 2022 RADHA guided cardioversion with Dr[address] Bates. Echo while the patient was in atrial fibrillation January 06, 2022 revealing EF 45 to 50% mild LVH left atrium moderately dilated mild MR. LA 4.7 cm. M cot 01/06/2022 AF heart rate 60-1 59 ECV to SR 06/1022. Patient is on Eliquis. Recent cardiac ablation. Status post ablation Holter shows A-fib burden 0%. Patient is asymptomatic and rate controlled. Encounters Date Type Department Care Team Description 05/10/2025 Telephone [facility] [address] [phone] Stefanie Garnica MD 04/02/2025 11:30 AM EDT Office Visit [facility] [address] [phone] Stefanie Garnica MD Bradycardia, drug induced (Primary Dx); Obstructive sleep apnea; Essential hypertension; Paroxysmal atrial fibrillation; Pure hypercholesterolemia 04/02/2025 Patient rounding ([facility] only) [facility] [address] [phone] Stefanie Garnica MD 04/02/2025 Travel from Last 3 Months Family History Medical History Relation Name Comments Heart disease Brother 1 Piter Workman Stroke Brother 1 Piter Workman Other Brother 2 BACK DISEASE Heart disease Brother 4 Asthma Father Jordy Workgurvinder Cancer Father Jordy Workman Heart attack Father Jordy Workman Heart disease Father Jordy Workman Heart disease Maternal Grandfather Sammi Kaminski Heart attack Mother Vikram Workman Heart disease Mother Vikram Workman Heart failure Mother Vikram Workman Stroke Mother Vikram Workman Heart attack Sister 1 Other Sister 2 PAD Cirrhosis Sister 3 Other Sister 5 GSW Relation Name Status Comments Brother 1 Piter Workman Alive Brother 2 Alive Brother 3 Alive Brother 4 (Age 69) Father Jordy Sanz (Age 57) Maternal Grandfather Sammi Kaminski Mother Vikram Workgurvinder (Age 54) Sister 1 Alive Sister 2 Alive Sister 3 INFANCY Sister 4 LATE 40'S Sister 5 40'S Social History Tobacco Use Types Packs/Day Years Used Date Smoking Tobacco: Former Cigarettes 3 15 0 09/20/1996 - 09/20/2011 Passive Smoke Exposure: Past Smokeless Tobacco: Former Tobacco Cessation:Counseling Given: Not Answered Alcohol Use Standard Drinks/Week Comments Yes 15 (1 standard drink = 0.6 oz pu re alcohol) beers daily AUDIT-C Answer Date Recorded Q1: How often do you have a drink containing alcohol? 4 or more times a week 08/27/2022 Q2: How many drinks containi ng alcohol do you have on a typical day when you are drinking? 10 or more Q3: How often do you have si x or more drinks on one occasion? Daily or almost daily 08/27/2022 PHQ-2 Answer Date Recorded Retired PHQ-9: Brief Depression Severity Measure Score 0 08/27/2022 Abuse Screen Answer Date Recorded Feels Unsafe at Home or Work/School no 08/27/2022 Feels Threatened by Someone no 04/2022 Does Anyone Try to Keep You From Having Contact with Others or Doing Things Outside Your Home? no 08/27/2022 Physical Signs of Abuse Present no 08/27/2022 Housing Stability Answer Date Recorded Current Living Arrangements home 04/2022 Potentially Unsafe Housing Conditions Not on ronald e 08/27/2022 Disabilities Answer Date Recorded Difficulty Concentrating, Remembering or Making Decisions no 08/27/2022 Difficulty Managing Errands Independently no 08/27/2022 Sex and Gender Information Value Date Recorded Sex Assigned at Not on file Legal Sex Male 12:42 PM EDT Gender Identity Not on file Sexual Orientation Not on file Last Filed Vital Signs Vital Sign Reading Time Taken Comments Blood Pressure 120/62 04/02/2025 11:51 AM EDT Pulse 69 04/02/2025 11:51 AM EDT Temperature 36.8 C (98.2 F) 08/27/2022 12:15 PM EST Respiratory Rate 18 08/27/2022 12:30 PM EST Oxygen Saturation 97% 04/02/2025 11:51 AM EDT Inhaled Oxygen Concentration - - Weight 97.5 kg (215 lb) 04/02/2025 11:51 AM EDT Height 167.6 cm (5' 6 ) 04/02/2025 11:51 AM EDT Body Mass Index 34.7 04/02/2025 11:51 AM EDT Plan of Treatment Upcoming Encounters Date Type Department Care Team (Late st Contact Info) Description 10/08/2025 10:45 AM EST Office Visit [facility] [address] [phone] Stefanie Garnica MD [address] [id number] Health Maintenance Due Date Last Done Comments DIABETIC EYE EXAM 1970 URINE MICROALBUMIN-CREATININ E RATIO (uACR) 1970 COLOGUARD 2005 COLON CANCER SCREENING 5 YEA R SIGMOIDOSCOPY 2005 CT COLONOGRAPHY 2005 FECAL OCCULT BLOOD TEST 2005 FIT Testing (1 year) 2005 HEPATITIS C SCREENING 09/29/2019 LUNG CANCER SCREENING 08/17/2023 08/17/2022 ANNUAL WELLNESS VISIT 11/17/2024 11/18/2023 , 08/25/2023, 06/16/2022 HEMOGLOBIN A1C 01/24/2025 07/27/2024, 08/0 04/2024, 08/25/2023, Additional history exists AAA SCREEN ONCE 2025 LIPID PANEL 03/30/2025 03/30/2024, 03/20, 10/21/2022, Additional history exists INFLUENZA VACCINE 04/20/2025 07/27/2024, , 06/14/2021, Additional history exists COVID-19 Vaccine ( - 2023-2 5 season) 2025 07/27/2024, 08/01/2021, 12/19/2020, Additional history exists DIABETIC FOOT EXAM 02/26/2026 02/26/2025 Pneumococcal Vaccine 50+ (3 of 3 - PCV20 or PCV21) 06/17/2027 06/17/2022, 06/27/2015 COLONOSCOPY 12/28/2027 12/27/2017 COLORECTAL CANCER SCREENING 12/28/2027 TDAP/TD VACCINES (3 - Td or Tdap) 02/26/2035 025, 09/20/2004 ZOSTER VACCINE Completed 07/20/2023, 04/29/2023 Procedures Procedure Name Priority Date/Time Associated Diagnosis Comments ECG 12-LEAD Routine 04/02/2025 12:25 PM EDT Bradycardia, drug induced Paroxysmal atrial fibrillation SCANNED - PULMONARY RESULTS 04/02/2025 CT ANGIOGRAM CHEST W WO CONTRAST Routine 08/17/2022 1:05 PM EST Atrial fibrillation with RVR HEMOGLOBIN A1C STAT 05/26/2019 10:56 AM EDT LIPID PANEL STAT 05/26/2019 10:56 AM EDT from Last 3 Months or Most Recently Relevant to Health Maintenance Results * ECG 12-LEAD (04/02/2025 12:25 PM EDT) Narrative Olga Hobson RegSched Rep - 04/02/2025 12:25 PM EDT Stefanie Garnica MD 04/02/2025 12:28 PM ECG 12 Lead Date/Time: 04/02/2025 12:25 PM Performed by: Stefanie Garnica MD Authorized by: Stefanie Garnica MD Comparison: compared with previous ECG from 03/27/2024 Similar to previous ECG Rhythm: sinus bradycardia Rate: normal Conduction: conduction normal ST Segments: ST segments normal T Waves: T waves normal QRS axis: normal Other: no other findings Clinical impression: non-specific ECG Procedure Note Stefanie Garnica MD - 04/02/2025 11:30 AM EDT Images from the original note were not included. [facility] Provider Note Date: 04/02/2025 Name: Ian Sanz : 1960 PCP: Lexi Brooks APRN Chief Complaint Patient presents with Atrial Fibrillation Pt here for six month follow up a fib with EKG. Last labs 02/26/25. OSAfollow up with download. Subjective History of Present Illness Ian Sanz is a 65 y.o. male who presents today for follow upa-fib, CHF,DANI EKG updated today Denies problems with Bi-Pap machine. Resting well. DL in EPIC andreviewed. Denies chest pain or palpitations. Has swelling in legs no more than usual Has some shortness of breath no worse than normal. No dizziness or syncope. No new issues or concerns. States doing well. 04/02/2025 Updated Cardiac/sleep history 1. DANI with baseline AHI of 10, on BiPAP therapy with oxygen. 2. Atrial fibrillation s/p ablation 08/2022 3. Hypertension 4. Hyperlipidemia 5. CHF [facility] 05/26/2019-normal coronaries. Normal left ventricular function. Carotid duplex 11/14/2020% carotid stenosis bilaterally. Vertebralflow is antegrade bilaterally. No Known Allergies Current Outpatient Medications: albuterol sulfate HFA 108 (90 Base) MCG/ACT inhaler, Inhale 1 puff 4(Four) Times a Day As Needed., Disp: , Rfl: ALPRAZolam (XANAX) 0.5 MG tablet, Take 0.5 tablets by mouth As Needed.,Disp: , Rfl: apixaban (Eliquis) 5 MG tablet tablet, Take 1 tablet by mouth Every 12(Twelve) Hours., Disp: , Rfl: ARIPiprazole (ABILIFY) 10 MG tablet, Take 1 tablet by mouth Daily.,Disp: , Rfl: bumetanide (BUMEX) 1 MG tablet, Take 2 tablets by mouth Daily., Disp: ,Rfl: busPIRone (BUSPAR) 15 MG tablet, Take 1 tablet by mouth 2 (Two) Times aDay., Disp: , Rfl: carvedilol (COREG) 3.125 MG tablet, Take 1 tablet by mouth Daily., Disp:, Rfl: empagliflozin (Jardiance) 10 MG tablet tablet, Take 1 tablet by mouthDaily., Disp: , Rfl: esomeprazole (nexIUM) 40 MG capsule, Take 1 capsule by mouth EveryMorning Before Breakfast., Disp: , Rfl: Viberohxuyx-Zvcmrcytt-Bstuiv (TRELEGY) 200-62.5-25 MCG/INH inhaler,Inhale 1 puff Daily., Disp: , Rfl: gabapentin (NEURONTIN) 600 MG tablet, Take 0.5 tablets by mouth 2 (Two)Times a Day., Disp: , Rfl: hydrOXYzine (ATARAX) 10 MG tablet, Take 1 tablet by mouth 2 (Two) Timesa Day As Needed., Disp: , Rfl: ipratropium-albuterol (DUO-NEB) 0.5-2.5 mg/3 ml nebulizer, , Disp: ,Rfl: losartan-hydrochlorothiazide (HYZAAR) 100-25 MG per tablet, Take 1tablet by mouth Daily., Disp: , Rfl: metFORMIN ER (GLUCOPHAGE-XR) 500 MG 24 hr tablet, 1 tablet Daily WithBreakfast., Disp: , Rfl: montelukast (SINGULAIR) 10 MG tablet, Take 1 tablet by mouth Daily.,Disp: , Rfl: pantoprazole (PROTONIX) 40 MG EC tablet, Take 1 tablet by mouth Daily.,Disp: , Rfl: pravastatin (PRAVACHOL) 40 MG tablet, Take 1 tablet by mouth every nightat bedtime., Disp: , Rfl: rOPINIRole (REQUIP) 0.25 MG tablet, TAKE 4 TABLETS BY MOUTH 1-3 HOURSBEFORE BEDTIME FOR RESTLESS LEGS., Disp: , Rfl: Saccharomyces boulardii (Probiotic) 250 MG capsule, Take 250 mg by mouthDaily., Disp: , Rfl: sotalol (BETAPACE) 120 MG tablet, Take 1 tablet by mouth Every 12(Twelve) Hours., Disp: , Rfl: tamsulosin (FLOMAX) 0.4 MG capsule 24 hr capsule, Take 1 capsule bymouth Daily., Disp: , Rfl: topiramate (TOPAMAX) 50 MG tablet, Take 1 tablet by mouth Every Night.,Disp: , Rfl: triamcinolone (KENALOG) 0.1 % cream, , Disp: , Rfl: Vascepa 1 g capsule capsule, Take 2 g by mouth 2 (Two) Times a Day.,Disp: , Rfl: venlafaxine XR (EFFEXOR-XR) 75 MG 24 hr capsule, Take 2 capsules bymouth Daily., Disp: , Rfl: vitamin B-12 (CYANOCOBALAMIN) 1000 MCG tablet, , Disp: , Rfl: Past Medical History: Diagnosis Date Atrial fibrillation with RVR CAD (coronary artery disease) Carotid stenosis Chronic systolic (congestive) heart failure COPD (chronic obstructive pulmonary disease) 10 plus years ago Dizziness and giddiness Essential (primary) hypertension GERD (gastroesophageal reflux disease) Hiatal hernia Hypercholesterolemia Hypoxemia DANI (obstructive sleep apnea) BASELINE AHI 10 TX WITH BIPAP/OXYGEN Other snf (current) drug therapy Other specified peripheral vascular diseases PAF (paroxysmal atrial fibrillation) Peptic ulcer disease RLS (restless legs syndrome) Past Surgical History: Procedure Laterality Date CARDIAC CATHETERIZATION N/A 05/26/2019 Procedure: Left Heart Cath; Surgeon: Romaine Yusuf MD; Location: [facility] LOC[facility]; Service: Cardiovascular CARDIAC ELECTROPHYSIOLOGY PROCEDURE N/A 08/27/2022 Procedure: Ablation atrial fibrillation. Stop Sotalol 3 days prior.;Surgeon: Matthew العلي DO; Location: [facility] LOC[facility];Service: Cardiovascular; Laterality: N/A; LEG SURGERY Left SHOULDER SURGERY Left UMBILICAL HERNIA REPAIR Family History Problem Relation Age of Onset Heart disease Mother Heart failure Mother Stroke Mother Heart attack Mother Heart disease Father Asthma Father Cancer Father Heart attack Father Heart attack Sister Other Sister PAD Cirrhosis Sister Other Sister GSW Stroke Brother Heart disease Brother Other Brother BACK DISEASE Heart disease Brother Heart disease Maternal Grandfather Social History Socioeconomic History Marital status: Number of children: 3 Tobacco Use Smoking status: Former Current packs/day: 0.00 Average packs/day: 3.0 packs/day for 15.0 years (45.0 ttl pk-yrs) Types: Cigarettes Start date: 09/20/1996 Quit date: 09/20/2011 Years since quittin.5 Passive exposure: Past Smokeless tobacco: Former Vaping Use Vaping status: Never Used Substance and Sexual Activity Alcohol use: Yes Alcohol/week: 15.0 standard drinks of alcohol Types: 15 Cans of beer per week Comment: beers daily Drug use: Never Sexual activity: Not Currently Partners: Female Objective Vital Signs: BP 120/62 (BP Location: Right arm, Patient Position: Sitting, Cuff Size:Adult) Pulse 69 Ht 167.6 cm (66 ) Wt 97.5 kg (215 lb) SpO2 97% BMI 34.70 kg/m Estimated body mass index is 34.7 kg/m as calculated from thefollowing: Height as of this encounter: 167.6 cm (66 ). Weight as of this encounter: 97.5 kg (215 lb). Physical Exam Constitutional: Appearance: Normal appearance. He is well-developed. HENT: Head: Normocephalic and atraumatic. Eyes: General: No scleral icterus. Pupils: Pupils are equal, round, and reactive to light. Cardiovascular: Rate and Rhythm: Normal rate and regular rhythm. Heart sounds: Normal heart sounds. No murmur heard. Pulmonary: Breath sounds: Normal breath sounds. No wheezing or rhonchi. Musculoskeletal: Right lower leg: No edema. Left lower leg: No edema. Skin: Capillary Refill: Capillary refill takes less than 2 seconds. Coloration: Skin is not cyanotic. Nails: There is no clubbing. Neurological: Mental Status: He is alert and oriented to person, place, and time. Motor: No weakness. Gait: Gait normal. Psychiatric: Mood and Affect: Mood normal. Behavior: Behavior is cooperative. Thought Content: Thought content normal. Cognition and Memory: Memory normal. PAP download reviewed: Reviewed. Good compliance and control. ECG 12 Lead Date/Time: 04/02/2025 12:25 PM Performed by: Stefanie Garnica MD Authorized by: Stefanie Garnica MD Comparison: compared with previousECG from 03/27/2024 Similar to previous ECG Rhythm: sinus bradycardia Rate: normal Conduction: conduction normal ST Segments: ST segments normal T Waves: T waves normal QRS axis: normal Other: no other findings Clinical impression: non-specific ECG Assessment and Plan Diagnoses and all orders for this visit: 1. Bradycardia, drug induced (Primary) 2. Obstructive sleep apnea 3. Essential hypertension 4. Paroxysmal atrial fibrillation 5. Pure hypercholesterolemia Other orders - ECG 12 Lead PLAN: -bradycardia noted on EKG, HR 46bpm. Stop digoxin -a fib well controlled, continue DOAC and BB -HTN well controlled, continue current meds. -pap DL reviewed, good compliance and control. -LDL well controlled from labs from 02/2025. Cont pravastatin Follow Up Return in about 6 months (around 10/03/2025) for Next scheduled followup. Matias Garnica MD [facility] 04/02/2025 Please note that this explicitly excludes time spent on other separatebillable services such as performing procedures or test interpretation,when applicable. This note was created using dictation software which occasionallytranscribes nonsensical phrases. Please contact the provider if anyclarification is needed. us Stefanie Garnica MD ECG ORDERABLES Final Result * Pulmonary Results Scan (04/02/2025) us Stefanie Garnica MD PFT ORDERABLES Final Result * CT Angiogram Chest (08/17/2022 1:05 PM EST) Anatomical Region Laterality Modality Chest, Vascular N/A Computed Tomogra phy 08/17/2022 1:24 PM EST Impressions 08/17/2022 1:27 PM EST 1. Hepatomegaly and hepatic steatosis. This report was finalized on 08/17/2022 1:27 PM by Иван Mary MD. Narrative 08/17/2022 1:27 PM EST DATE OF EXAM: 08/17/2022 12:54 PM PROCEDURE: CT ANGIOGRAM CHEST- INDICATIONS: AF, PVA; I48.91-Unspecified atrial fibrillation COMPARISON: No comparisons available. TECHNIQUE: Contiguous axial imaging was obtained from the thoracic inlet through the upper abdomen following the intravenous administration of 80 mL of Isovue 370. Reconstructed coronal and sagittal images were also obtained. Automated exposure control and iterative reconstruction methods were used. The radiation dose reduction device was turned on for each scan per the ALARA (As Low as Reasonably Achievable) protocol. FINDINGS: VASCULAR FINDINGS: Aortic valve is unremarkable. There are mild aortic and coronary artery vascular calcifications. The pulmonary arteries normal in caliber. NONVASCULAR FINDINGS: Evaluation adjacent soft tissues is unremarkable. The lungs are clear. The esophagus is unremarkable. There is hepatomegaly and hepatic steatosis. No aggressive appearing lytic or sclerotic bone lesions. Procedure Note Иван Mary MD - 08/17/2022 DATE OF EXAM: 08/17/2022 12:54 PM PROCEDURE: CT ANGIOGRAM CHEST- INDICATIONS: AF, PVA; I48.91-Unspecified atrial fibrillation COMPARISON: No comparisons available. TECHNIQUE: Contiguous axial imaging was obtained from the thoracic inlet through the upper abdomen following the intravenous administration of 80 mL of Isovue 370. Reconstructed coronal and sagittal images were also obtained. Automated exposure control and iterative reconstruction methods were used. The radiation dose reduction device was turned on for each scan per the ALARA (As Low as Reasonably Achievable) protocol. FINDINGS: VASCULAR FINDINGS: Aortic valve is unremarkable. There are mild aortic and coronary artery vascular calcifications. The pulmonary arteries normal in caliber. NONVASCULAR FINDINGS: Evaluation adjacent soft tissues is unremarkable. The lungs are clear. The esophagus is unremarkable. There is hepatomegaly and hepatic steatosis. No aggressive appearing lytic or sclerotic bone lesions. IMPRESSION: 1. Hepatomegaly and hepatic steatosis. This report was finalized on 08/17/2022 1:27 PM by Иван Mary MD. Matthew العلي DO IMG CT ORDERABLES Final Result * (ABNORMAL) Hemoglobin A1c (05/26/2019 10:56 AM EDT) Hemoglobin A1C 6.50(H) 4.80 - 5.60 % 05/26/2019 11:30 AM EDT [facility] Blood Line / Unknown 05/26/2019 10 :56 AM EDT 05/26/2019 11:06 AM EDT [facility] - 05/26/2019 11:30 AM EDT Hemoglobin A1C Ranges: Increased Risk for Diabetes 5.7% to 6.4% Diabetes >= 6.5% Diabetic Goal < 7.0% Zahra Oscar APRN LAB BLOOD ORDERABLES Final Result [facility]
[address] [place] [address], * (ABNORMAL) Lipid Panel (05/26/2019 10:56 AM EDT) Total Cholesterol 189 0 - 200 mg/dL 05/26/2019 11:30 AM EDT [facility] Triglycerides 199(H) 0 - 150 mg/dL 05/26/2019 11:30 AM EDT [facility] HDL Cholesterol 70(H) 40 - 60 mg/dL 05/26/2019 11:30 AM EDT [facility] LDL Cholesterol 79 0 - 100 mg/dL 05/26/2019 11:30 AM EDT [facility] VLDL Cholesterol 39.8 mg/dL 05/26/20 19 11:30 AM EDT [facility] LDL/HDL Ratio 1.13 05/26/2019 11:30 AM EDT [facility] Blood Line / Unknown 05/26/2019 10 :56 AM EDT 05/26/2019 11:06 AM EDT [facility] - 05/26/2019 11:30 AM EDT Cholesterol Reference Ranges (U.S. Department of Health and Human Services ATP III Classifications) Desirable <200 mg/dL Borderline High 200-239 mg/dL High Risk >240 mg/dL Triglyceride Reference Ranges (U.S. Department of Health and Human Services ATP III Classifications) Normal <150 mg/dL Borderline High 150-199 mg/dL High 200-499 mg/dL Very High >500 mg/dL HDL Reference Ranges (U.S. Department of Health and Human Services ATP III Classifcations) Low <40 mg/dl (major risk factor for CHD) High >60 mg/dl ('negative' risk factor for CHD) LDL Reference Ranges (U.S. Department of Health and Human Services ATP III Classifcations) Optimal <100 mg/dL Near Optimal 100-129 mg/dL Borderline High 130-159 mg/dL High 160-189 mg/dL Very High >189 mg/dL Zahra Oscar APRN LAB BLOOD ORDERABLES Final Result [facility]
[address] [place] [address], from Last 3 Months or Most Recently Relevant to Health Maintenance Insurance MEDICARE A & B Member Subscriber Plan / Payer (Ef fective 2017-Present) Name:Ian Sanz Member ID:[id number] Relation to Subscriber:Self Name:Ian Sanz Subscriber ID:[id number] Payer ID:[id number] Group ID:Not on file Type:Not on file Address: [id number] [place] [employer] [facility] Care Teams Pearl Cutter Relationship Specialty Start Date End Date Lexi Brooks APRN [address] [place] [address] PCP - General Family Medicine 10/02/24
--- OUTSIDE RECORDS SUMMARY | 2025-06-12 09:13 | XMS_ITS | Encounter Summary ---
Author Organization [facility] Address [address] [place] [address] Care Team Providers Care Volcanology Professor Name Role Phone Lexi Brooksaguilar MARCH Primary Care Provider [phone] Encounter Details Date Type Department Care Team (Late st Contact Info) Description 05/10/2025 Telephone [facility] [address] [place] [phone] Stefanie Garnica MD [address] [place], [place] [id number] Social History Tobacco Use Types Packs/Day Years Used Date Smoking Tobacco: Former Cigarettes 3 15 0 09/20/1996 - 09/20/2011 Passive Smoke Exposure: Past Smokeless Tobacco: Former Alcohol Use Standard Drinks/Week Comments Yes 15 [...] no 08/27/2022 Feels Threatened by Someone no 12/0 04/2022 Does Anyone Try to Keep You [...] on file Sexual Orientation Not on file documented as of this encounter Miscellaneous Notes * Telephone Encounter - Asuncion Adams MA - 05/10/2025 3:38 PM EDT .Any new symptoms since last OV such as chest pain SOA? No Any worsening of edema or worsening palpitations? No Any major medical issues since last OV we need to know? No Is the patient on Eliquis, xarelto, pradaxa? Yes, Eliquis 5 mg bid Is the patient on aspirin? No Is the patient on brilinta (ticagrelor), plavix (clopidogrel), prasugrel (effient)? No Is the patient on medications like mounjaro or ozempic? No Last EKG? 04-02-25 Last stress test? No Last echo? 10-02-24 Last heart cath or CCTA? Heart cath 05-26-2019 Last OV? 04-02-[address] Garnica Do you have a history of DANI? Yes * Telephone Encounter - Deanna Oates RegSched Rep - 05/10/2025 2:39 PM EDT [facility] IS REQUESTING A CC FOR DR. WAQAS TOBAR TO PROCEED WITH A COLONOSCOPY ON 05/23/25. FAX# [phone] PT WAS LAST SEEN ON 04/02/25 documented in this encounter Plan of Treatment Upcoming Encounters Date Type Department Care Team (Late st Contact Info) Description 10/08/2025 10:45 AM EST Office Visit [facility] [address] [place] [address] Stefanie Garnica MD [address] [place] [address] documented as of this encounter Visit Diagnoses Not on filedocumented in this encounter Care Teams Volcanology Professor Relationship Specialty Start Date End Date Lexi Brooks APRN [address] [place] [id number] PCP - General Family Medicine 10/02/24 documented as of this encounter
--- OUTSIDE RECORDS SUMMARY | 2025-06-12 09:13 | XMS_ITS | Referral Summary ---
Author Organization [employer] ([place], [place], [place], [place]) Address [address] [place] [address] Care Team Providers Care Brush Cutter Name Role Phone Britany Parmar APRN Primary Care Provider [phone] Allergies No known active allergies Medications albuterol HFA (VENTOLIN HFA) 90 mcg/actuation inhaler SMARTSIG:Via Inhaler 04/20/2023 Active Eliquis 5 MG tablet Take 1 tablet (5 mg total) by mouth 2 (two) times daily. 05/10/2023 Active ARIPiprazole (ABILIFY) 5 MG tablet Take 1 tablet (5 mg total) by mouth daily. 05/31/2023 Active bumetanide (BUMEX) 1 MG tablet Take 1 tablet (1 mg total) by mouth 2 (two) times daily. 05/21/2023 Active busPIRone (BUSPAR) 15 MG tablet Take 1 tablet (15 mg total) by mouth 3 (three) times daily. 04/05/2023 Active clobetasoL (TEMOVATE) 0.05 % external solution SMARTSIG:Topi bryan 04/01/2023 Active digoxin (LANOXIN) 0.125 MG tablet Take 1 tablet (125 mcg total) by mouth daily. 05/10/2023 Active dilTIAZem (CARDIZEM CD) 240 MG 24 hr capsule Take 1 capsule (240 mg total) by mouth daily. 11/09/2022 Active Jardiance 10 mg tablet Take 1 tablet (10 mg total) by mouth daily. 05/31/2023 Active fluticasone propionate (FLONASE) 50 mcg/actuation nasal spray 1 spray 2 (two) times daily. 04/20/2023 Active Trelegy Ellipta 200-62.5-25 mcg DsDv 1 puff daily. 04/20/2023 Activ e gabapentin (NEURONTIN) 300 MG capsule Take 1 capsule (300 mg total) by mouth 2 (two) times daily. Max Daily Amount: 600 mg 04/05/2023 Active metFORMIN (GLUCOPHAGE-XR) 500 MG 24 hr tablet Take 2 tablets (1,000 mg total) by mouth 2 (two) times daily. 05/21/2023 Active montelukast (SINGULAIR) 10 mg tablet Take 1 tablet (10 mg total) by mouth daily. 04/20/2023 Active semaglutide (Ozempic) 0.25 mg or 0.5 mg (2 mg/3 mL) PnIj 01/27/2023 Activ e tamsulosin (FLOMAX) 0.4 mg Cap 24 hr capsule Take 1 capsule (0.4 mg total) by mouth daily. Active venlafaxine (EFFEXOR-XR) 75 MG 24 hr capsule Take 3 capsules (225 mg total) by mouth daily. 05/10/2023 Active losartan-hydroC HLOROthiazide (HYZAAR) 100-25 mg per tablet Take 1 tablet by mouth daily. Active esomeprazole (NexIUM) 40 MG capsule Take 1 capsule (40 mg total) by mouth daily. Active Social History Tobacco Use Types Packs/Day Years Used Date Smoking Tobacco: Never Smokeless Tobacco: Never Tobacco Cessation:Counseling Given: Not Answered Alcohol Use Standard Drinks/Week Comments Not Currently 0 (1 standard drink = 0.6 oz pur e alcohol) Food Insecurity Answer Date Recorded Food run out past 12 months Not on file 09/20 Food did not last past 12 months Not on file 10/08/2023 Employment Answer Date Recorded Help finding and keeping a job Not on file 0 10/08/2023 Family and Community Support Answer Emmanuel e Recorded Help with Day to Day Activities Not on file 10/08/2023 Feeling Lonely or Isolated Not on file 10/08 Educational Attainment Answer Date Bill rded Speak language other than Greenlandic at home Not on file 10/08/2023 Want help with school or training Not on file 10/08/2023 Substance Use Answer Date Recorded Used prescription meds for non-medical reasons N ot on file 10/08/2023 Used illegal drugs past 12 months Not on file 10/08/2023 Sex and Gender Information Value Date Recorded Sex Assigned at Not on file Legal Sex Male 12:27 PM CDT Gender Identity Not on file Sexual Orientation Not on file Last Filed Vital Signs Vital Sign Reading Time Taken Comments Blood Pressure 138/73 06/07/2023 3:21 PM EDT Pulse 72 06/07/2023 3:21 PM EDT Temperature - - Respiratory Rate 18 06/07/2023 3:21 PM EDT Oxygen Saturation - - Inhaled Oxygen Concentration - - Weight 105.2 kg (232 lb) 06/07/2023 3:21 PM EDT Height 170.2 cm (5' 7 ) 06/07/2023 3:21 PM EDT Body Mass Index 36.34 06/07/2023 3:21 PM EDT Plan of Treatment Not on file Insurance MEDICARE PART [place] [address] [place] [address] CROSS/BLUE SHIELD Care Teams Brush Cutter Relationship Specialty Start Date End Date Britany Parmar APRN [address] [place] [id number] PCP - General Nurse Practitioner 9/18/23
--- OUTSIDE RECORDS SUMMARY | 2025-06-12 09:13 | XMS_ITS | Clinical Summary ---
Author Organization [employer] ([place], [place], [place], [place]) Address [address] [place] [address] Care Team Providers Care Power Switchboard Operator Name Role Phone Britany Parmar APRN Primary Care Provider [phone] Allergies No known active allergies Medications albuterol [...] (40 mg total) by mouth daily. Active Family History Medical History Relation Name Comments Cancer Other Diabetes Other Heart disease Other Stroke Other Relation Name Status Comments Other Social History Tobacco Use Types Packs/Day Years [...] Date Bill rded Speak language other than Yoruba at home Not on file 10/08/2023 Want [...] 06/07/2023 3:21 PM EDT Plan of Treatment Health Maintenance Due Date Last Done Comments CT Colonography 1960 Colonoscopy 1960 Colorectal Cancer Screening 1960 FOBT/FIT 1960 Fit-DNA (Cologuard) 1960 Sigmoidoscopy 1960 Depression Screening (12+) 1972 HIV Screening 1975 Hepatitis C Screening 1978 DTAP/TDAP/TD VACCINES (1 - Tdap) 1979 Lipid Panel 1995 Pneumococcal 50+ years (1 of 1 - PCV) 2010 Medicare Initial AWV [id number] 11/19/2018 Shingles Vaccine (Zoster) (2 of 2) 06/24/20232022 Tobacco Cessation Counseling and Screening (12+) 06/07/2024 06/07/2023 Falls Risk Screening 09/20/2024 COVID-19 VACCINE ( - 2024- season) 2025 08/01/2021, 12/19/2020, 11/21/2020 Influenza Vaccine (#1) 2025 08/19/2018 Respiratory Syncytial Virus (RSV) Adult or (1 - 1-dose 75+ series) 2035 Insurance MEDICARE PART A B BLUE CROSS/BLUE SHIELD Care Teams Power Switchboard Operator Relationship Specialty Start Date End Date Britany Parmar APRN [address] [place] [address] PCP - General Nurse Practitioner 06/07/23
--- OUTSIDE RECORDS SUMMARY | 2025-06-12 09:13 | XMS_ITS | Clinical Summary ---
Author Organization [facility] Address [address] [place] [address] Care Team Providers Care Pin Drafting Machine Operator Name Role Phone Silvino Mcguire MD Primary Care Provider [phone] Social History Tobacco Use Types Packs/Day Years Used Date Smoking Tobacco: Former Sex and Gender Information Value Date Recorded Sex Assigned at Not on file Legal Sex Male 6:30 PM EDT Gender Identity Not on file Sexual Orientation Not on file Last Filed Vital Signs Vital Sign Reading Time Taken Comments Blood Pressure - - Pulse - - Temperature - - Respiratory Rate - - Oxygen Saturation - - Inhaled Oxygen Concentration - - Weight 106 kg (233 lb 0.1 oz) 03/06/2015 2:50 PM EDT Height 170.2 cm (5' 7 ) 03/06/2015 2:50 PM EDT Body Mass Index 36.49 03/06/2015 2:50 PM EDT Plan of Treatment Not on file Care Teams Pin Drafting Machine Operator Relationship Specialty Start Date End Date Silvino Mcguire MD [address] [place] [id number] PCP - General 01/31/21
== END 2025-06-12 23:59 | disposition home or self-care (01) ==
LOC: RAD 08:57
PROVIDERS: PCP Nurse Practitioner Family; Visit Provider Nurse Practitioner Family
DX: Z13.6 Encounter for screening for cardiovascular disorders (principal)
CPT/HCPCS: 76706